=== PATIENT | female | born 1945 | race Two or more races ===

== ENCOUNTER 2025-01-20 18:03 | Emergency (ER) | payer OTHER, MEDICAID ==
[~2025-01-20] VITALS: Ht 154.9 cm; Wt 88.9 kg
[2025-01-20 18:07] VITALS: TEMP 95.7
[2025-01-20] MEDS: IV NS 0.9% 1,000 ML BAG IV ONE ×2 (18:20→20:10)
[2025-01-20 18:37] LABS: CALCIUM, SERUM 8.8 mg/dL (8.5-10.1); CARBON DIOXIDE 23 mmol/L (21-32); CHLORIDE 101 mmol/L (98-107); CREATININE 1.7 mg/dL (0.6-1.3); GLUCOSE 335 mg/dL (74-106); POTASSIUM 4.8 mmol/L (3.5-5.1); SODIUM SERUM 137 mmol/L (136-145); UREA NITROGEN, BLOOD 42 mg/dL (7-18)
[2025-01-20 18:38] LABS: SERUM AMMONIA 25 umol/L (11-32)
[2025-01-20 18:40] LABS: BASOPHILS # (AUTO) 0.1 K/uL (0.0-0.2); BASOPHILS % (AUTO) 0.3 % (0.0-2.0); EOSINOPHILS % (AUTO) 0.1 % (0.0-6.0); HEMATOCRIT 47 % (33-45); HEMOGLOBIN 14.8 g/dL (11.5-14.8); LYMPHOCYTES # (AUTO) 1.1 K/uL (0.8-4.8); LYMPHOCYTES % (AUTO) 3.9 % (20.0-44.0); MEAN CORPUSCULAR HEMOGLOBIN 27 PG (26.0-33.0); MEAN CORPUSCULAR HGB CONC 31 g/dl (31.0-36.0); MEAN CORPUSCULAR VOLUME 85 fL (82-100); MONOCYTES % (AUTO) 6.7 % (2.0-12.0); NEUTROPHILS # (AUTO) 26.1 K/uL (1.8-8.9); PLATELET COUNT (AUTO) 368 K/uL (150-450); RED BLOOD CELL COUNT(AUTO) 5.59 MIL/uL (4.0-5.2); RED CELL DISTRIBUTION WIDTH 15.7 % (11.5-15.0); WHITE BLOOD COUNT (AUTO) 29.3 K/uL (4.3-11.0)
[2025-01-20 18:44] LABS: INR 1.03 (0.91-1.10); PARTIAL THROMBOPLASTIN TIME 21.7 SEC (24.3-34.3); PROTHROMBIN TIME 10.9 SECS (9.2-11.1)
[2025-01-20 18:49] LABS: LACTIC ACID 5.6 mmol/L (0.4-2.0)
[2025-01-20 18:52] LABS: ALANINE AMINOTRANSFERASE 35 U/L (12-78); ALBUMIN 3.8 g/dL (3.4-5.0); ALKALINE PHOSPHATASE 83 U/L (46-116); ASPARTATE AMINOTRANSFERASE 17 U/L (15-37); BILIRUBIN,DIRECT 0.2 mg/dL (0.0-0.2); BILIRUBIN,TOTAL 0.8 mg/dL (0.2-1.0); TOTAL PROTEIN, SERUM 7.4 g/dL (6.4-8.2)
[2025-01-20 18:53] LABS: ACETAMINOPHEN <10 ug/ml (10-30); ALCOHOL, BLOOD < 3 mg/dL (0-10); SALICYLATE 1.8 mg/dL (2.8-20.0)
[2025-01-20 19:03] LABS: APPEARANCE,URINE CLEAR (CLEAR); BILIRUBIN,URINE NEGATIVE (NEGATIVE); BLOOD, URINE TRACE-INTA Ery/uL (NEGATIVE); COLOR,URINE YELLOW (YELLOW); KETONES,URINE NEGATIVE (NEGATIVE); LEUKOCYTE ESTERASE ,URINE NEGATIVE (NEGATIVE); NITRITE, URINE NEGATIVE (NEGATIVE); PROTEIN,URINE 3+ mg/dl (NEGATIVE); UGLUCOSE 1+ mg/dL (NEGATIVE); UROBILINOGEN,URINE 0.2 EU/dL (0.2)
[2025-01-20] MEDS: NICARDIPINE HCL 40 MG in IV NS 0.9% 184 ML IV PRN (19:15)
[2025-01-20 19:20] LABS: SITE, VBG LEFT RADIAL; VBG BASE EXCESS -2.2 mmol/L (-2.0-3.0); VBG COHb 0.2 % (0.5-1.5); VBG MetHb 0.3 % (0.5-1.5); VBG O2Hb 96.6 % (0-79); VBG OXYGEN SATURATION 97.1 % (60.0-85.0); VBG PCO2 40.8 mmHg (38.0-54.0); VBG PH 7.368 (7.320-7.430); VBG PO2 99.9 mmHg (23.0-48.0); VBG TOTAL HEMOGLOBIN 14.7 G/dL (12.0-16.0)
[2025-01-20] MEDS: LEVETIRACETAM (500MG) 500 MG in IV NS 0.9% 100 ML IV STA (19:20)
[2025-01-20 19:23] LABS: ADD URINE CULTURE NO; BACTERIA,URINE Few /HPF (None Seen); SQUAMOUS EPITHELIAL CELL,UR Moderate /HPF (None Seen); WBC,URINE 0-2 /HPF (0-3)
[2025-01-20 19:36] LABS: AMPHETAMINE, URINE NEGATIVE (NEGATIVE); BARBITURATE, URINE NEGATIVE (NEGATIVE); BENZODIAZEPINE, URINE NEGATIVE (NEGATIVE); CANNABINOID, URINE NEGATIVE (NEGATIVE); COCCAINE, URINE NEGATIVE (NEGATIVE); OPIATE, URINE NEGATIVE (NEGATIVE); PHENCYCLIDINE SCREEN,URINE NEGATIVE (NEGATIVE)
[2025-01-20 19:44] VITALS: BP 166/55; O2SAT 97
[2025-01-20] MEDS: CEFEPIME 1 GM in IV D5W 50 ML IV ONE (20:10)
[2025-01-20] MEDS: VANCOMYCIN 1 GM in IV D5W 250 ML IV ONE (20:10)
== END 2025-01-20 20:17 | disposition short-term general hospital (02) ==
LOC: ER 18:07
DX: A41.9 Sepsis, unspecified organism (principal); R65.20 Severe sepsis without septic shock; I60.9 Nontraumatic subarachnoid hemorrhage, unspecified; I16.1 Hypertensive emergency; I21.4 Non-ST elevation (NSTEMI) myocardial infarction; R09.02 Hypoxemia; E11.65 Type 2 diabetes mellitus with hyperglycemia; E87.20 Acidosis, unspecified; I10 Essential (primary) hypertension; N17.9 Acute kidney failure, unspecified; R94.6 Abnormal results of thyroid function studies; Z95.3 Presence of xenogenic heart valve; Z86.79 Personal history of other diseases of the circulatory system
CPT/HCPCS: 99291; 99292; 96365; 96361; 96368; 93005; 82803; 71045; 70450; 82140; 85025; 80048; 87040 ×2; 87086; 82010; 83605; 80076; 81001; 36415; 84443; 84484; 85730; 80143; 80320; 80307; J3370; J7060; J7030 ×2; J7050; J0692; J1953; G0480